=== PATIENT | female | born 1985 | race Caucasian/White ===

== ENCOUNTER 2023-08-24 03:21 | Emergency (ER) | payer SELFPAY ==
[2023-08-24] MEDS ORDERED: Ipratropium/Albuterol 3 ML NEB ONE (03:33)
[2023-08-24 04:05] LABS: #Basophils 0.04 10x3/uL (0.0-0.2); %Basophils 0.4 % (0.0-1.0); %Eosinophils 5.7 % (0.0-10.0); %Lymphocytes 32.9 % (21.0-51.0); %Monocytes 7.5 % (0.0-10.0); %Neutrophils 53.3 % (42.0-75.0); Hematocrit 38.4 % (36.0-47.0); Hemoglobin 13.2 g/dL (12.0-16.0); Mean Corpuscular HGB CONC 34.4 g/dL (32.0-36.0); Mean Corpuscular Hemoglobin 33.5 pg (27.0-31.0); Mean Corpuscular Volume 97.5 fL (78.0-98.0); Mean Platelet Volume 9.7 fL (7.4-10.4); Platelet Count 430 10x3/uL (130-400); RBC Distribution Width 13.2 % (11.5-14.5); Red Blood Cell (RBC) Count 3.94 mill/uL (4.20-5.40)
[2023-08-24 04:28] LABS: BHCG - Serum Negative (NEGATIVE); Pregs Control Background? CLEAR/WHITE (CLR/WHITE); Pregs Control Bar Appear? YES (CONTROL BAR); Troponin I Less than 0.010 ng/mL (< 0.028)
[2023-08-24 04:58] LABS: ALT (SGPT) 20 U/L (8-55); AST (SGOT) 11 U/L (5-34); Albumin 3.9 g/dL (3.5-5.0); Alkaline Phosphatase 55 U/L (40-110); Anion Gap 10 mmol/L (10-20); BUN (Urea Nitrogen) 24 mg/dL (7.0-18.7); Bilirubin, Total 0.3 mg/dL (0.2-1.2); Calc. Creatinine Clearance 0 mL/min (70-130); Calcium 9.3 mg/dL (7.8-10.44); Carbon Dioxide 21 mmol/L (22-29); Chloride 109 mmol/L (98-107); Estimated GFR 116; Glucose 97 mg/dL (70-105); Potassium 4.2 mmol/L (3.5-5.1); Protein, Total 6.9 g/dL (6.0-8.3); Sodium 136 mmol/L (136-145)
[2023-08-24] MEDS ORDERED: methylPREDNISolone Sod Succ/PF 125 MG/2 ML VIAL ONE (05:50)
== END 2023-08-24 07:13 | disposition home or self-care (01) ==
LOC: ERS 03:21
DX: J45.909 Unspecified asthma, uncomplicated (principal); F17.200 Nicotine dependence, unspecified, uncomplicated
CPT/HCPCS: 36415; 71045; 80053; 83880; 84484; 84703; 85025; 93005; 94640; 96374; J2930; J7620

== ENCOUNTER 2023-09-09 09:53 | Emergency (ER) | payer SELFPAY ==
[2023-09-09] MEDS ORDERED: Ketorolac Tromethamine 30 MG (1 mL) VIAL ONE (11:39)
[2023-09-09] MEDS ORDERED: Dexamethasone 10 MG/ML VIAL ONE (11:39)
[2023-09-09] MEDS ORDERED: Ondansetron PF 4 MG/2 ML Vial ONE (11:39)
[2023-09-09 11:52] LABS: #Basophils Less than 0.03 10x3/uL (0.0-0.2); %Basophils 0.3 % (0.0-1.0); %Eosinophils 3.6 % (0.0-10.0); %Lymphocytes 24.8 % (21.0-51.0); %Monocytes 6.7 % (0.0-10.0); %Neutrophils 64.2 % (42.0-75.0); Hematocrit 35.7 % (36.0-47.0); Hemoglobin 12.8 g/dL (12.0-16.0); Mean Corpuscular HGB CONC 35.9 g/dL (32.0-36.0); Mean Corpuscular Volume 94.9 fL (78.0-98.0); Mean Platelet Volume 9.3 fL (7.4-10.4); Platelet Count 346 10x3/uL (130-400); RBC Distribution Width 12.6 % (11.5-14.5); Red Blood Cell (RBC) Count 3.76 mill/uL (4.20-5.40)
[2023-09-09 12:12] LABS: BHCG - Serum Negative (NEGATIVE); Pregs Control Background? CLEAR/WHITE (CLR/WHITE); Pregs Control Bar Appear? YES (CONTROL BAR)
[2023-09-09 12:15] LABS: ALT (SGPT) 41 U/L (8-55); AST (SGOT) 25 U/L (5-34); Alkaline Phosphatase 57 U/L (40-110); Anion Gap 12 mmol/L (10-20); BUN (Urea Nitrogen) 9 mg/dL (7.0-18.7); Bilirubin, Total 0.9 mg/dL (0.2-1.2); Calc. Creatinine Clearance 0 mL/min (70-130); Calcium 9.1 mg/dL (7.8-10.44); Carbon Dioxide 23 mmol/L (22-29); Chloride 106 mmol/L (98-107); Estimated GFR 120; Globulin 2.7 g/dL (2.4-3.5); Glucose 106 mg/dL (70-105); Lipase 13 U/L (8-78); Magnesium 1.9 mg/dL (1.6-2.6); Potassium 2.9 mmol/L (3.5-5.1); Protein, Total 6.7 g/dL (6.0-8.3); Sodium 138 mmol/L (136-145)
[2023-09-09] MEDS ORDERED: Potassium Bicarbonate/Cit Ac 25 MEQ TAB ONE (12:25)
[2023-09-09 12:30] LABS: Influenza A by NAA Not Detected (NotDetected); Influenza B by NAA Not Detected (NotDetected); SARS-CoV-2 NAA Rapid Test DETECTED (NotDetected)
[2023-09-09 13:00] LABS: Bacteria/HPF None Seen HPF (None Seen); Bilirubin Negative (Negative); Blood, Urine Negative (Negative); CAUTI Indications for Culture Fever or rigors; Clarity Turbid (Clear); Glucose, Urine (Dipstick) Normal (Negative); Ketone, Urine 10 mg/dL (Negative); Leukocyte 25 Leu/uL (Negative); Nitrite Negative (Negative); Protein, Urine (Dipstick) 10 mg/dL (Neg-Trace); RBC/HPF 0-3 HPF (0-3); Specific Gravity, Urine 1.019 (1.002-1.036); Urobilinogen Normal mg/dL (Less than 2)
[2023-09-09] MEDS ORDERED: diphenhydrAMINE 50 MG/ML VIAL ONE (13:01)
[2023-09-09 13:04] LABS: Urine Culture Reflex Yes Yes
== END 2023-09-09 14:07 | disposition home or self-care (01) ==
LOC: ERS 09:53
DX: U07.1 COVID-19 (principal); E87.6 Hypokalemia; K92.2 Gastrointestinal hemorrhage, unspecified; R06.02 Shortness of breath; F17.210 Nicotine dependence, cigarettes, uncomplicated
CPT/HCPCS: 36416; 71045; 71275; 74177; 80053; 81001; 83605; 83690; 83735; 84703; 85025; 86850; 86900; 86901; 87040; 87086; 96361; 96374; 96375; J1100; J1200; J1885; J2405

== ENCOUNTER 2024-12-20 20:46 | Emergency (ER) | payer OTHER ==
[2024-12-20] MEDS ORDERED: HYDROcodone/Acetaminophen 10/325 mg Tablet ONE (22:41)
== END 2024-12-20 23:00 | disposition home or self-care (01) ==
LOC: ERS 20:46
DX: S16.1XXA Strain of muscle, fascia and tendon at neck level, initial encounter (principal); S39.012A Strain of muscle, fascia and tendon of lower back, initial encounter; F17.210 Nicotine dependence, cigarettes, uncomplicated; F17.290 Nicotine dependence, other tobacco product, uncomplicated; V40.5XXA Car driver injured in collision with pedestrian or animal in traffic accident, initial encounter; Y92.410 Unspecified street and highway as the place of occurrence of the external cause
CPT/HCPCS: 72100; 72125; 96372; J2060; J3010